=== PATIENT | male | born 1965 | race Caucasian/White ===

== ENCOUNTER 2016-04-07 12:21 | Emergency (ER) | payer BC ==
[~2016-04-07] VITALS: Ht 177.8 cm; Wt 91.2 kg
[~2016-04-07 12:21] MED LIST: ALLOPURINOL100 M1 PO; ASPIRIN81 MG PO; CO-Q10 300 MG-31 SGL PO; EXFORGE 5 MG-161 TAB PO; ZOCOR5 MG PO
[2016-04-07] MEDS ORDERED: LISINOPRIL2.5 MG PO (12:35)
[2016-04-07 13:19] LABS: LYMPH # 2.2 K/mm3 (0.7-4.5)
[2016-04-07 13:25] LABS: HEMOGLOBIN 19.1 g/dL (14.1-18.0)
--- NOTE | 2016-04-07 14:10 | Emergency Room Report ---
History of Present Illness Time Seen by [id number] Presenting Problem in Triage Pt arrived:Wheelchair Presenting Problem:PATIENT REPORTS FEELING DIZZY AND WARM.BROUGHT OVER BY DR. ESCALANTE STAFF. REPORTS PATIENT FELL AND BACK OF HEAD. NO REPORTS OF PAIN AT THIS TIME. 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 N Clinical Suspician of Infection? N Mental Status: 1 - Regular (Normal Baseline) Sepsis Risk:Low Sepsis Risk Have you (or family members/close friends) recently traveled outside the [place]? N If Yes, where/when: Have you had exposure to infectious disease within the past month? N TB? Other? Specify: Source patient, RN notes reviewed, family, RN/MD Exam Limitations no limitations Comment 50yo white male presents today after syncopal episode that occured at his PCP office today, preparing to check out. He reports he was fasting prior to episode , and only had a banana and water with medications. All he remembers was that he was hot and dizzy prior to fainting. He denies having these episodes before. Denies any fever, chills, visual changes, diaphoresis, CP, palpitations, SOA, wheezing. After syncopal event, pt stabilized and symptoms resolved after transport to ER. ALLERGIES Coded Allergies: amoxicillin (04/07/16) Home Medications Reported Medications Coenzyme Q10/Vitamin E (Co-Q10 300 Mg-3 Iu) 1 SGL PO DAILY LISINOPRIL (Lisinopril) 2.5 MG PO DAILY ALLOPURINOL (Allopurinol 100MG) 100 MG PO BID AMLODIPINE/VALSARTAN (Exforge 5-160 MG Tablet) 1 TAB PO DAILY Aspirin 81 MG PO DAILY History Medical History General CAD? No Angina: No [place]: No Hypertension? Yes Hyperlipidemia? Yes CHF? No DVT? No PE? No COPD? No Asthma? No Anemia? No GERD? No Gastric ulcers? No GI Bleed? No Hernia? Yes Thyroid Problems? No Hypothyroidism? No CVA? No Seizures? No Diabetes? No Renal Insuffiency? No End Stage Renal Disease? No UTI? Yes Stones? No BPH? No GB Disease: No Nephritic Syndrome? No Asplenia? No Hepatitis? No Sickle Cell Disease? No Arthritis? No Migraines? No Cataracts? No Glaucoma? No MRSA? No HIV? No TB? No Anxiety? No Depression? No Cancer? No More? No Immunization Hx Ped.Immunizations UTD Yes DT/Tetanus 1-4 YRS Surgical Hx Previous Surgery?Y BASKET EXTRACTION LITHOTRYPSY Family History Family Hx Diabetes No CAD No Hypertension Yes Hyperlipidemia Yes Cancer Yes Social History Smoking Hx Smoker: Never Smoker Tobacco: No Type N/A Are you/the child exposed to second-hand smoke: No Alcohol Alcohol: No Review of Systems All Other Systems Reviewed and Negative Constitutional see HPI, denies fever, denies malaise, denies weakness Respiratory see HPI Cardiovascular see HPI Gastrointestinal denies no symptoms reported Genitourinary no symptoms reported. Musculoskeletal denies no symptoms reported Skin denies no symptoms reported Psychiatric/Neurological denies no symptoms reported Physical Exam Vital Signs Vital Signs Date Time Temp Pulse Resp B/P Pulse O2 O2 Flow FiO2 Ox Delivery Rate 04/07 1447 97.9 79 18 132/91 97 04/07 1345 98.1 77 16 129/88 95 04/07 1257 78 16 153/91 98 04/07 1256 80 16 147/96 98 04/07 1255 91 16 120/91 98 04/07 1223 98.0 82 18 132/87 98 General Appearance normal appearance, WD/WN, no apparent distress Respiratory Status Yes: trachea midline, chest symmetrical, non tender chest. No: respiratory distress. Lung Sounds bilateral: normal breath sounds, lungs clear. 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 No Comment Upon reevaluation patient appears medically stable, clinically improving. Instructed patient to drink plenty of fluids, eat 3 regular meals per day and follow-up with his PCP if no better in a couple days. Patient departed emergency room in stable medical condition, completely recovered. Results/Orders Laboratory Tests 04/07/16 1305: Sodium 139, Potassium 4.0, Chloride 102, Carbon Dioxide 30, BUN 8, Creatinine 1.0, Estimated Creat Clear 111, Estimated GFR (MDRD) 78, Glucose 118 H, Calcium 9.3, Total Bilirubin 0.6, AST 22, ALT 40, Alkaline Phosphatase 97, Total Protein 8.1, Albumin 4.1, Globulin 4.0 H, Albumin/Globulin Ratio 1.0 L, WBC 6.4, RBC 6.45 H, Hgb 19.1 *H, Hct 55.5 H, MCV 87.0, RDW 14.8, Plt Count 239, MPV 8.3, Gran % 54.6, Gran # 3.5, Lymphocytes % 35.0, Monocytes % 5.5, Eosinophils % 3.3, Basophils % 1.5, Lymphocytes # 2.2, Monocytes # 0.4, Eosinophils # 0.2, Basophils # 0.1, PUBS MCHC 33.8, MCH 29.4 Orders Procedure Date/time Status CBC WITH AUTO DIFF 04/07 1257 Complete CHEM 12 PROFILE 04/07 1257 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 of ischemic chgs, no ectopy, normal QRS, normal [place], normal EKG, no EKG for comparison, non-spec. ST/Twave chgs, ST elevation, ST depression, LBBB, RBBB, ectopy, abnormal Q waves Departure Departure Time of Disposition 1406 Disposition DC Home or Self Care(routine) Clinical Impression Primary Impression: Vasovagal syncope Secondary Impressions: Dehydration Condition STABLE Referrals Chidi Medina MD (Family): 2 Days-Call Office if not better Patient Instructions DI for Dehydration -- Adult, DI for Syncope in Adults ( Fainting) Additional Instructions Please drink plenty of fluids, eat at least 3 regular meals per day, if not better follow-up with your PCP. Discharge Counseling Counseled pt/family regarding diagnosis, test results, medications/RX, home care, follow up needs ED Critical Care Critical Care No at 1807 care, follow up needs ED Critical Care Critical Care No
--- NOTE | 2016-04-07 14:10 | Emergency Room Report ---
History of Present Illness Time Seen by [id number] Presenting Problem in Triage Pt arrived:Wheelchair Presenting Problem:PATIENT REPORTS FEELING DIZZY AND WARM.BROUGHT OVER BY DR. ESCALANTE STAFF. REPORTS PATIENT FELL AND BACK OF HEAD. NO REPORTS OF PAIN AT THIS TIME. 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 N Clinical Suspician of Infection? N Mental Status: 1 - Regular (Normal Baseline) Sepsis Risk:Low Sepsis Risk Have you (or family members/close friends) recently traveled outside the [place]? N If Yes, where/when: Have you had exposure to infectious disease within the past month? N TB? Other? Specify: Source patient, RN notes reviewed, family, RN/MD Exam Limitations no limitations Comment 50yo white male presents today after syncopal episode that occured at his PCP office today, preparing to check out. He reports he was fasting prior to episode , and only had a banana and water with medications. All he remembers was that he was hot and dizzy prior to fainting. He denies having these episodes before. Denies any fever, chills, visual changes, diaphoresis, CP, palpitations, SOA, wheezing. After syncopal event, pt stabilized and symptoms resolved after transport to ER. ALLERGIES Coded Allergies: amoxicillin (04/07/16) Home Medications Reported Medications Coenzyme Q10/Vitamin E (Co-Q10 300 Mg-3 Iu) 1 SGL PO DAILY LISINOPRIL (Lisinopril) 2.5 MG PO DAILY ALLOPURINOL (Allopurinol 100MG) 100 MG PO BID AMLODIPINE/VALSARTAN (Exforge 5-160 MG Tablet) 1 TAB PO DAILY Aspirin 81 MG PO DAILY History Medical History General CAD? No Angina: No [place]: No Hypertension? Yes Hyperlipidemia? Yes CHF? No DVT? No PE? No COPD? No Asthma? No Anemia? No GERD? No Gastric ulcers? No GI Bleed? No Hernia? Yes Thyroid Problems? No Hypothyroidism? No CVA? No Seizures? No Diabetes? No Renal Insuffiency? No End Stage Renal Disease? No UTI? Yes Stones? No BPH? No GB Disease: No Nephritic Syndrome? No Asplenia? No Hepatitis? No Sickle Cell Disease? No Arthritis? No Migraines? No Cataracts? No Glaucoma? No MRSA? No HIV? No TB? No Anxiety? No Depression? No Cancer? No More? No Immunization Hx Ped.Immunizations UTD Yes DT/Tetanus 1-4 YRS Surgical Hx Previous Surgery?Y BASKET EXTRACTION LITHOTRYPSY Family History Family Hx Diabetes No CAD No Hypertension Yes Hyperlipidemia Yes Cancer Yes Social History Smoking Hx Smoker: Never Smoker Tobacco: No Type N/A Are you/the child exposed to second-hand smoke: No Alcohol Alcohol: No Review of Systems All Other Systems Reviewed and Negative Constitutional see HPI, denies fever, denies malaise, denies weakness Respiratory see HPI Cardiovascular see HPI Gastrointestinal denies no symptoms reported Genitourinary no symptoms reported. Musculoskeletal denies no symptoms reported Skin denies no symptoms reported Psychiatric/Neurological denies no symptoms reported Physical Exam Vital Signs Vital Signs Date Time Temp Pulse Resp B/P Pulse O2 O2 Flow FiO2 Ox Delivery Rate 04/07 1447 97.9 79 18 132/91 97 04/07 1345 98.1 77 16 129/88 95 04/07 1257 78 16 153/91 98 04/07 1256 80 16 147/96 98 04/07 1255 91 16 120/91 98 04/07 1223 98.0 82 18 132/87 98 General Appearance normal appearance, WD/WN, no apparent distress Respiratory Status Yes: trachea midline, chest symmetrical, non tender chest. No: respiratory distress. Lung Sounds bilateral: normal breath sounds, lungs clear. 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 No Comment Upon reevaluation patient appears medically stable, clinically improving. Instructed patient to drink plenty of fluids, eat 3 regular meals per day and follow-up with his PCP if no better in a couple days. Patient departed emergency room in stable medical condition, completely recovered. Results/Orders Laboratory Tests 04/07/16 1305: Sodium 139, Potassium 4.0, Chloride 102, Carbon Dioxide 30, BUN 8, Creatinine 1.0, Estimated Creat Clear 111, Estimated GFR (MDRD) 78, Glucose 118 H, Calcium 9.3, Total Bilirubin 0.6, AST 22, ALT 40, Alkaline Phosphatase 97, Total Protein 8.1, Albumin 4.1, Globulin 4.0 H, Albumin/Globulin Ratio 1.0 L, WBC 6.4, RBC 6.45 H, Hgb 19.1 *H, Hct 55.5 H, MCV 87.0, RDW 14.8, Plt Count 239, MPV 8.3, Gran % 54.6, Gran # 3.5, Lymphocytes % 35.0, Monocytes % 5.5, Eosinophils % 3.3, Basophils % 1.5, Lymphocytes # 2.2, Monocytes # 0.4, Eosinophils # 0.2, Basophils # 0.1, PUBS MCHC 33.8, MCH 29.4 Orders Procedure Date/time Status CBC WITH AUTO DIFF 04/07 1257 Complete CHEM 12 PROFILE 04/07 1257 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 of ischemic chgs, no ectopy, normal QRS, normal [place], normal EKG, no EKG for comparison, non-spec. ST/Twave chgs, ST elevation, ST depression, LBBB, RBBB, ectopy, abnormal Q waves Departure Departure Time of Disposition 1406 Disposition DC Home or Self Care(routine) Clinical Impression Primary Impression: Vasovagal syncope Secondary Impressions: Dehydration Condition STABLE Referrals Chidi Medina MD (Family): 2 Days-Call Office if not better Patient Instructions DI for Dehydration -- Adult, DI for Syncope in Adults ( Fainting) Additional Instructions Please drink plenty of fluids, eat at least 3 regular meals per day, if not better follow-up with your PCP. Discharge Counseling Counseled pt/family regarding diagnosis, test results, medications/RX, home care, follow up needs ED Critical Care Critical Care No at 1807 care, follow up needs ED Critical Care Critical Care No
[2016-04-07 14:47] VITALS: BP 132/91
== END 2016-04-07 14:49 | disposition home or self-care (01) ==
LOC: ER 12:21
PROVIDERS: Emergency Medicine
DX: R42 Dizziness and giddiness (principal); I10 Essential (primary) hypertension; E86.0 Dehydration